=== PATIENT | female | born 1980 | race Caucasian/White ===

== ENCOUNTER 2017-03-20 07:54 | Observation (INO) ==
[2017-03-20] MEDS ORDERED: Ondansetron 4 MG/2 ML VIAL IVP PRN (08:07)
[2017-03-20] MEDS ORDERED: Ketorolac 15 MG/ML VIAL IVP PRN (08:07)
[2017-03-20] MEDS ORDERED: *HR* OxyCODONE Immed Rel 5 MG TABLET PO PRN (08:07)
[2017-03-20] MEDS ORDERED: *HR* Promethazine 25 MG/ML VIAL IVP PRN (08:07)
[2017-03-20] MEDS ORDERED: Naloxone 0.4 MG/ML INJ IVP PRN (08:07)
--- NOTE | 2017-03-20 08:16 | Urology History & Physical ---
Date of Encounter: 03/20/17 Time of Encounter: 08:14 Assessment and Plan (1) Ureteral stone with hydronephrosis Status: Acute Patient had intractable pain in the office this morning and we elected to admit the patient to the urology service for likely surgical intervention. We will plan on a ureteroscopic stone extraction with holmium laser lithotripsy tomorrow. Patient understands that I may not be able to perform an in situ stone extraction because of the proximal location of the stone and possible significant edema and hydronephrosis. If this is the case, we'll place a ureteral stent and stage a stone extraction. We did discuss an ESWL as an alternative therapy. We did discuss the risks of the stone extraction which includes injury to her urinary tract, stricture, infection, perforation. History of Present Illness Chief complaint: flank pain HPI: Ms. Bravo is a 36 year old female seen in the ER for a 8 mm proximal ureteral stone. discharged from the ER yesterday but pain so severe this AM that she was contemplating going back to the emergency room today. No fever. Positive nausea. Distant history of stones. Past Med Surg Social Fam HX - Past Medical History Medical history: no medical history Psychiatric history: no psych history - Social History Smoking Status: Current every day smoker Smokeless Tobacco Status: No Alcohol use: occasionally Drug use: none Medications and Allergies Dicyclomine [Bentyl] 20 mg PO TID #20 capsule 04/25/16 [Rx] Ondansetron ODT [Zofran ODT] 4 mg SL Q8HR #14 tab.rapdis 04/25/16 [Rx] Ciprofloxacin [Cipro] 500 mg PO BID #14 tablet 03/19/17 [Rx] Fluconazole [Diflucan] 150 mg PO DAILY #1 tab 03/19/17 [Rx] Ondansetron ODT [Zofran ODT] 4 mg SL Q6HR PRN #14 tab.rapdis 03/19/17 [Rx] Oxycodone HCl/Acetaminophen [Percocet 5-325 mg Tablet] 1 each PO Q4-6H PRN #20 tablet 03/19/17 [Rx] 3 Allergy/AdvReac Type Severity Reaction Status Date / Time sertraline [From Zoloft] Allergy Anaphylaxis Verified 04/25/16 10:45 tramadol Allergy Anaphylaxis Verified 04/25/16 10:45 morphine AdvReac Nausea Verified 04/25/16 10:45 Review of Systems - Constitutional fatigue, no fever(s) - EENT Nose, mouth and throat: no dizziness - Cardiovascular no chest pain - Respiratory no cough - Gastrointestinal abdominal pain, nausea - Genitourinary Genitourinary: flank pain - Musculoskeletal back pain - Integumentary no erythema - Neurological no confusion - Psychiatric no anxiety - Hematologic/Lymphatic no easy bleeding - Allergic/Immunologic no throat swelling Exam - General physical appearance Present: well developed, no distress, moderate pain - Eyes Present: PERRL - ENT Present: normal nares - Neck Present: no masses - Respiratory Present: normal respiratory effort - Cardiovascular Cardiovascular exam IM: RRR - Abdomen Abdomen: Present: soft - Integumentary Present: no rash - Neurologic Present: normal coordination. Absent: disoriented, confused - Musculoskeletal Present: normal gait - Additional Findings Positive CVA tenderness Urology Results - Labs All other labs normal.
[2017-03-20 10:32] LABS: Basophils # 0.1 K/mcL (0.0-0.2); Basophils % 0.4 %; Eosinophils # 0.3 K/mcL (0.0-0.6); Eosinophils % 2.8 %; Hemoglobin 13.2 g/dL (11.5-15.4); Immature Granulocytes % 0.4 % (0-4); Lymphocytes # 1.1 K/mcL (0.6-4.6); Mean Corpuscular Hemoglobin 30.6 pg (28.0-33.3); Mean Corpuscular Volume 92.8 fL (83.0-100.0); Mean Platelet Volume 9.6 fL (9.4-12.4); Monocytes # 0.7 K/mcL (0.0-1.3); Monocytes % 6.1 %; Neutrophils # 9.5 K/mcL (1.6-8.9); Platelet Count 282 K/mcL (140-400); Red Blood Count 4.31 M/mcL (3.82-4.97); Red Cell Distribution Width 12.9 % (11.5-14.5); Segmented Neutrophils % 81.3 %
[2017-03-20] MEDS: 0.9 % Sodium Chloride 1,000 ML IVC SCH ×2 (10:39→19:37)
[2017-03-20] MEDS: *HR* HYDROmorphone (PF) 1 MG/ML SYRINGE IVP PRN ×6 (10:40→22:56)
[2017-03-20 10:43] LABS: BUN/Creatinine Ratio 12 (6-26); Blood Urea Nitrogen 10 mg/dL (7-20); Carbon Dioxide 23 mEq/L (19-29); Chloride 105 mEq/L (98-109); Potassium 3.8 mEq/L (3.5-4.5); Sodium 136 mEq/L (136-145); eGFR For African Americans > 60 (> 60)
[2017-03-20 10:44] LABS: Calcium 8.5 mg/dL (8.6-10.8); Glucose 131 mg/dL (70-99); Osmolality,Calculated 283 (280-300); eGFR For Non-African Americans > 60 (> 60)
[2017-03-20] MEDS: Ketorolac 30 MG/ML VIAL IVP PRN (19:36)
--- NOTE | 2017-03-20 20:22 | Anesthesia Evaluation PreOp ---
Date of Encounter: 03/20/17 Time of Encounter: 20:19 - Past History Planned Operation: R USE Cardiac History: Denies any Significant Hx Pulmonary History: Smoker [employer] History: Denies Any Significant HX Other Medical History: Denies Any Significant HX Anesthesia History: No Prior Anesthetic Complications, Past Anesthesia (tubal, endometrial ablation) Alcohol Use: occasionally Drug use: none Medications and Allergies No Known Home Drugs 03/20/17 [History] 3 Allergy/AdvReac Type Severity Reaction Status Date / Time sertraline [From Zoloft] Allergy Anaphylaxis Verified 04/25/16 10:45 tramadol Allergy Anaphylaxis Verified 04/25/16 10:45 morphine AdvReac Nausea Verified 04/25/16 10:45 - Meds/Allergy Pre-op Review Medications Reviewed: Yes Allergies Reviewed: Yes Beta Blockers on Current Med List: No Anesthesia Results - Labs 03/20/17 09:27 03/20/17 09:27 - Imaging EKG: report reviewed, image reviewed (SB) Anesthesia Exam Last Vital Signs Temp 98.0 F 03/20/17 19:37 Pulse 68 03/20/17 19:37 Resp 16 03/20/17 19:37 BP 123/82 03/20/17 19:37 Pulse Ox 95 03/20/17 19:44 Weight: 82 kg NPO (# of Hours): >> 8 hrs - HEENT Pupil (Motor): Pupils equal, EOMI Mallampati: III Teeth: Normal Oral Opening: Greater than 3 - [employer] LOC: Oriented [employer] Motor: Normal RUE, Normal LUE, Normal RLE, Normal LLE, Normal Face - Cardiac Rhythm: Regular Murmur: None - Pulmonary Breath Sounds: bilateral Clear Respiratory Effort: Symmetrical Anesthesia Assess/Plan ASA Score: 2 Modified Amira Scale for Level of Consciousness: Cooperative, oriented, and tranquil Anesthetic Plan: General Monitoring Plan: Standard Monitors Recovery Plan: PACU
[2017-03-21] MEDS: *HR* HYDROmorphone (PF) 1 MG/ML SYRINGE IVP PRN ×6 (00:22→17:44)
[2017-03-21] MEDS: Ketorolac 30 MG/ML VIAL IVP PRN (03:21)
[2017-03-21] MEDS: 0.9 % Sodium Chloride 1,000 ML IVC SCH (05:23)
--- NOTE | 2017-03-21 07:14 | Urology Progress Note ---
Date of Encounter: 03/21/17 Time of Encounter: 07:13 - Assessment and Plan (1) Ureteral stone with hydronephrosis Current Visit: Yes Status: Acute Assessment and plan: proceed with attempted stone extraction today. pain remains an issue Progress Note Subjective: still having pain (but not as bad) Objective Initial Vital Signs Pulse Ox 99 03/20/17 09:27 - General physical appearance Present: well developed, no distress - Labs 03/20/17 09:27 03/20/17 09:27 Diabetes panel 03/20/17 Range/Units 09:27 Sodium 136 (136-145) mEq/L Potassium 3.8 (3.5-4.5) mEq/L Chloride 105 (98-109) mEq/L Carbon Dioxide 23 (19-29) mEq/L BUN 10 (7-20) mg/dL Creatinine 0.81 (0.57-1.11) mg/dL Glucose 131 H (70-99) mg/dL Calcium 8.5 L (8.6-10.8) mg/dL Calcium panel 03/20/17 Range/Units 09:27 Calcium 8.5 L (8.6-10.8) mg/dL Pituitary panel 03/20/17 Range/Units 09:27 Sodium 136 (136-145) mEq/L Potassium 3.8 (3.5-4.5) mEq/L Chloride 105 (98-109) mEq/L Carbon Dioxide 23 (19-29) mEq/L BUN 10 (7-20) mg/dL Creatinine 0.81 (0.57-1.11) mg/dL Glucose 131 H (70-99) mg/dL Calcium 8.5 L (8.6-10.8) mg/dL Adrenal panel 03/20/17 Range/Units 09:27 Sodium 136 (136-145) mEq/L Potassium 3.8 (3.5-4.5) mEq/L Chloride 105 (98-109) mEq/L Carbon Dioxide 23 (19-29) mEq/L BUN 10 (7-20) mg/dL Creatinine 0.81 (0.57-1.11) mg/dL Glucose 131 H (70-99) mg/dL Calcium 8.5 L (8.6-10.8) mg/dL - VTE Documentation of Mechanical Device: Intermittent pneumatic compression device Consult Discharge Plan - Plan Referrals: Ady Benitez, [Primary Care Provider] -
[2017-03-21] MEDS ORDERED: *HR* Propofol 200 MG/20 ML VIAL IVP ONE (13:29)
[2017-03-21] MEDS ORDERED: *HR* Midazolam HCl 2 MG/2 ML VIAL ONE (13:30)
[2017-03-21] MEDS ORDERED: Lidocaine -MPF 2% 2 ML VIAL ONE (13:30)
[2017-03-21] MEDS ORDERED: *HR* FentaNYL (PF) 100 MCG/2 ML VIAL ONE (13:30)
[2017-03-21] MEDS ORDERED: Dexamethasone 4 MG/ML VIAL ONE (13:30)
[2017-03-21] MEDS ORDERED: Ondansetron 4 MG/2 ML VIAL ONE (13:30)
[2017-03-21] MEDS ORDERED: Ipratropium/Albuterol Neb 3 ML ONE (14:01)
[2017-03-21] MEDS ORDERED: Albuterol 2.5 MG/3 ML NEBULIZER IH ONE (14:01)
--- NOTE | 2017-03-21 15:24 | Operative Note ---
Date of procedure: 03/21/17 Pre-op diagnosis: right proximal ureteral stone Post-op diagnosis: same Procedure: right ureteroscopic stone extraction with holmium laser right retrograde pyelogram right JJ stent Anesthesia: GETA Surgeon: Naveen Springer Estimated blood loss (cc): 0 Specimen: stone Condition: stable Disposition: PACU Procedure in Detail: PROCEDURE IN DETAIL: Patient was taken back to the operating room, positioned supine on the operating table. Anesthesia was applied without complication. They were moved into dorsal lithotomy. Careful attention was maintained to cushion all pressure points for patient's safety. They were prepped and draped in sterile fashion. Time-out was performed with the proper patient and procedure. A 21-Somali rigid cystoscope was inserted into the bladder without difficulty. Systematic examination of bladder revealed no abnormalities. The ureteral orifice was cannulated using a 5-Somali ureteral Catheter and a retrograde pyelogram was performed using Isovue. A filling defect was identified which corresponded to the stone in the proximal ureter. At that point, a zip wire was placed through the 5-Somali and confirmed in the renal pelvis with fluoroscopy. An 8-10 dilator was then placed over the zip wire to passively dilate the ureteral orifice. A flexible ureteroscope was carefully inserted over the zip wire but it would not pass. I eventually placed a 11 x 13 36 flank access sheath. I was able to pass the ureteroscope through the sheath and at that point, the stone was encountered and I felt that it required fragmentation for safe extraction. A 200 micron holmium laser fiber on a setting of 8 and 800 was used to fragment the stone into multiple pieces. The fragments were individually basketed out of the ureter with a 1.9 tipless basket. All stone in the ureter was removed. A 4.8 x 26 ureteral stent was placed over the zip wire under fluoroscopy without complication. The bladder was drained along with the stone fragments. They were collected and sent for stone analysis. No string was left attached to the stent.
--- NOTE | 2017-03-21 15:28 | Discharge Summary ---
Date of Encounter: 03/21/17 Time of Encounter: 15:24 - Discharge Diagnosis (1) Ureteral stone with hydronephrosis Priority: Primary Status: Resolved - Discharge Medications Prescriptions: Oxycodone HCl/Acetaminophen [Percocet 5-325 mg Tablet] 1 each PO Q6H PRN #15 tablet PRN Reason: Pain Phenazopyridine HCl [Pyridium] 200 mg PO TIDAC PRN #20 tab PRN Reason: burning during urination Home Medications: Oxycodone HCl/Acetaminophen [Percocet 5-325 mg Tablet] 1 each PO Q6H PRN #15 tablet 03/21/17 [Rx] Phenazopyridine HCl [Pyridium] 200 mg PO TIDAC PRN #20 tab 03/21/17 [Rx] Allergies/Adverse Reactions: 3 Allergy/AdvReac Type Severity Reaction Status Date / Time sertraline [From Zoloft] Allergy Anaphylaxis Verified 04/25/16 10:45 tramadol Allergy Anaphylaxis Verified 04/25/16 10:45 morphine AdvReac Nausea Verified 04/25/16 10:45 Labs on day of discharge: Labs from last 24 hours 03/21/17 05:46 POC Glucose 93 H - Impressions ITS Impressions KUB X-Ray 03/20/17 08:10 IMPRESSION: 8 mm calcification correlating to the ureteral stone seen in the right UPJ on recent prior CT. No bowel obstruction. D/ / Ashok Knight MD / Ashok Knight MD Interpreting Provider: Ashok Knight MD Date of admission: 03/20/17 08:27 Primary care physician: Ady Benitez, Discharging clinician: Naveen Springer Anticipated date of discharge: 03/21/17 - Patient Status Disposition: Home, Self-Care Condition: Good Functional capacity at discharge: independent ambulation Overall status at discharge: patient is progressing back to baseline - Discharge Instructions Follow Up With: Ady Benitez DO [Primary Care Provider] - Naveen Springer MD [Partnered Physician] - (followup 1-2 weeks for office cystoscopy and stent removal. ) Additional Instructions: expect stent discomfort including urgency, frequency, blood in the urine, flank pain during urination (mild), burning with urination. these symptoms are normal stent will be removed in the office at followup. call if excessive symptoms or fever over 101. - Diet and Activity Activity: increase activity as tolerated Diet: advance to your usual diet - Hospital Course Hospital course: Ms. Bravo is a 36 year old female admitted from office bc of 8 mm proxiaml ureteral stone and severe pain. s/p stone extraction and stent. plan to discharge when pain is controlled. - Time Spent with Patient Total time spent providing and/or coordinating discharge services: Less than 30 minutes Exam Initial Vital Signs Pulse Ox 99 03/20/17 09:27 - General physical appearance Present: well developed, no distress - VTE Documentation of Mechanical Device: Intermittent pneumatic compression device
[2017-03-21] MEDS ORDERED: *HR* HYDROmorphone (PF) 1 MG/ML SYRINGE IVP PRN ×2 (16:20→18:13)
[2017-03-21] MEDS ORDERED: *HR* Promethazine 25 MG/ML VIAL IVP PRN ×2 (16:20→18:13)
--- NOTE | 2017-03-21 17:05 | Anesthesia Evaluation Post Op ---
Date of Encounter: 03/21/17 Time of Encounter: 17:10 - Vital Signs Vital Signs: Vital Signs/O2 Sat/Glucose, Most Current Temp Pulse Resp BP Pulse Ox 03/21/17 16:57 51 12 158/90 99 03/21/17 16:47 55 12 148/91 97 03/21/17 16:37 97.5 F L 64 12 142/85 96 03/21/17 14:09 16 96 - Lungs Lungs: Clear Ascult./Percussion - Airway Airway: Non-obstructed - Cardiovascular Regular Rate - Mental Status Mental Status: Alert & Oriented, Answers Appropriately - Pain Pain Scale: 0 - Nausea Vomiting Nausea Vomiting: Not Present - Hydration Hydration: Ice chips - Discharge PostOp Status: Transfer Patient to floor
[2017-03-21] MEDS ORDERED: Ondansetron 4 MG/2 ML VIAL IVP PRN (18:13)
[2017-03-21] MEDS ORDERED: 0.9 % Sodium Chloride 1,000 ML IVC SCH (18:13)
[2017-03-21] MEDS ORDERED: Ketorolac 30 MG/ML VIAL IVP PRN (18:13)
[2017-03-21] MEDS ORDERED: Naloxone 0.4 MG/ML INJ IVP PRN (18:13)
[2017-03-21] MEDS ORDERED: *HR* OxyCODONE Immed Rel 5 MG TABLET PO PRN (18:13)
[2017-03-21 18:14] VITALS: BP 130/75
== END 2017-03-22 00:50 | disposition home or self-care (01) ==
LOC: 3ANU
PROVIDERS: ADMIT Urology; ATTEND Urology